=== PATIENT | female | born 1960 | race African-American/Black ===

== ENCOUNTER 2021-05-07 16:11 | Outpatient (CLI) | payer OTHER, BC, SELFPAY ==
--- NOTE | ~2021-05-07 | MR_ITS ---
EXAMINATION: MR shoulder LT wo con DATE: 05/07/2021 17:37 INDICATION: Rotator cuff tear post pulling injury 3 weeks prior presenting with left shoulder pain TECHNIQUE: Magnetic resonance imaging (MRI) of the left shoulder was performed without intravenous co ntrast. Sequences included axial PD-weighted FS FSE, coronal oblique PD-weighted FS FSE, coronal obli que T2-weighted FS FSE, sagittal PD-weighted FS FSE, and sagittal T1-weighted SE. COMPARISON: None. FINDINGS: Coracoacromial arch: Postoperative change of prior acromioplasty. Moderate acromioclavicular osteoarthritis. Rotator cuff: Postoperative change of prior rotator cuff repair with multiple suture anchors along the anterior to posterior greater tuberosity. Full thickness versus near full-thickness articular sided tear along th e superior facet footplate of the supraspinatus tendon. There is medial retraction of the muscle santos y as well as posterior retraction of the tendon and distal muscle belly which is tethered to the ante rior margin of the infraspinatus tendon. There may be a few residual intact bursal sided fibers of th e tendon, but if present this would be of doubtful functional integrity given the inability to preven t the posterior retraction of the tendon at the level of the glenoid. Moderate tendinopathy of the in fraspinatus tendon, the repair which appears to remain intact. The teres minor tendon is normal. Mild to moderate subscapularis tendinopathy without discrete tear. There is mild fatty atrophy of both th e supraspinatus and infraspinatus muscles. Biceps tendon, glenoid labrum and glenohumeral cartilage: Long head of the biceps tendon is normal. Mild glenohumeral osteoarthritis with partial thickness car tilage loss and small marginal zone and subchondral osteophytes along the inferomedial aspect of the humeral head. Additional deep chondral fissuring and tiny central subchondral osteophytes at the apex of the humeral head. Partial-thickness chondral ulceration along the cephalad half of the glenoid. T here are small marginal and subchondral osteophytes at the inferior glenoid. There is degenerative te aring of the inferior to posterior superior glenoid labrum. Fluid: Physiologic amount of fluid in the glenohumeral joint and biceps tendon sheath. No loose osteochondr al bodies. No abnormal increased fluid in the subacromial/subdeltoid bursa to suggest bursitis. Bones: Normal marrow signal with no fracture or pathologic marrow replacing process. IMPRESSION: 1. Prior supraspinatus and infraspinatus rotator cuff repair with likely recurrent full versus near f ull-thickness articular sided tear of the supraspinatus tendon which is tethered to and retracted pos teriorly along the infraspinatus tendon which demonstrates moderate tendinopathy without discrete tea r. 2. Mild to moderate subscapularis tendinopathy without discrete tear. 3. Mild glenohumeral osteoarthritis with degenerative tearing along the posterior superior to inferio r glenoid labrum. 4. Moderate acromioclavicular osteoarthritis. Reviewed, dictated and finalized at location A. IMPRESSION: 1. Prior supraspinatus and infraspinatus rotator cuff repair with likely recurr ent full versus near full-thickness articular sided tear of the supraspinatus t endon which is tethered to and retracted posteriorly along the infraspinatus te ndon which demonstrates moderate tendinopathy without discrete tear. 2. Mild to moderate subscapularis tendinopathy without discrete tear. 3. Mild glenohumeral osteoarthritis with degenerative tearing along the posteri or superior to inferior glenoid labrum. 4. Moderate acromioclavicular osteoarthritis.
== END 2021-05-07 16:12 | disposition home or self-care (01) ==
PROVIDERS: PCP Internal Medicine
DX: S46.912A Strain of unspecified muscle, fascia and tendon at shoulder and upper arm level, left arm, initial encounter (principal); X58.XXXA Exposure to other specified factors, initial encounter; M19.012 Primary osteoarthritis, left shoulder
CPT/HCPCS: 73221

== ENCOUNTER 2021-09-14 14:50 | Outpatient (CLI) | payer BC, SELFPAY ==
--- NOTE | ~2021-09-14 | MR_ITS ---
EXAMINATION: MR hand RT wo/w con DATE: 09/14/2021 15:53 INDICATION: Pain at the right third finger TECHNIQUE: Magnetic resonance imaging (MRI) of the right hand was performed without and with 20 mL Mu ltihance intravenous contrast to include the metacarpals and digits. Sequences included axial, sagitt al and coronal T1-weighted FSE, T2-weighted FS FSE and fluid sensitive FSE STIR, axial T1-weighted FS FSE and postcontrast axial, sagittal and coronal T1-weighted FS FSE. COMPARISON: None FINDINGS: Bone alignment is normal. Normal marrow signal throughout with no fracture, erosions or pathologic ma rrow replacing process. Prominent enhancing tenosynovitis extending along the flexor digitorum longus tendons to the third digit from the level of the mid metacarpal to the base of the middle phalanx. T here is bulging of the tendon sheath lingula between the police along the third digit. At the level o f the diaphysis of the proximal phalanx there is both fusiform thickening of the flexor tendons consi stent with tendinopathy without discrete tear as well as thickening of the A2 radha with prominent s urrounding soft tissue edema. Findings are consistent with stenosing tenosynovitis (trigger finger). The remaining flexor and extensor tendons are normal.. Mild osteoarthritis at the first carpometacar pal and triscaphe joints. Remaining joint spaces appear relatively preserved. No joint effusions. Col lateral ligament complex at the metacarpophalangeal and interphalangeal joints are normal. No other a bnormally enhancing lesions identified. IMPRESSION: 1. Prominent tenosynovitis along the flexor tendon of the right third digit with mild fusiform thicke [place] of the tendon and thickening of the A2 radha at the level of the proximal phalanx suggesting st enosing tenosynovitis (trigger finger). Reviewed, dictated and finalized at location A. IMPRESSION: 1. Prominent tenosynovitis along the flexor tendon of the right third digit wit h mild fusiform thickening of the tendon and thickening of the A2 radha at the level of the proximal phalanx suggesting stenosing tenosynovitis (trigger fing er).
[2021-09-14 15:16] LABS: Estimated Glomerular Filt Rate 55
== END 2021-09-14 14:51 ==
PROVIDERS: PCP Internal Medicine
DX: S63.591A Other specified sprain of right wrist, initial encounter (principal); X58.XXXA Exposure to other specified factors, initial encounter
CPT/HCPCS: 73220; A9577